=== PATIENT | male | born 1980 | race Caucasian/White ===

== ENCOUNTER 2020-09-22 09:22 | Emergency (ER) | payer BC, OTHER, SELFPAY ==
[2020-09-22 09:35] VITALS: BP 127/87; PULSE 80; RESP 14; TEMP 36; O2SAT 98; BMI 25.7
--- NOTE | 2020-09-22 09:41 | XR_ITS ---
PROCEDURE: XR CHEST 2V CLINICAL HISTORY: pneumonia COMPARISON: No exams were available for comparison FINDINGS: The cardiomediastinal silhouette and pulmonary vascularity are within normal limits. The lungs are clear without infiltrates, suspicious nodules, or pleural effusions. No acute bony abnormalities. IMPRESSION: No acute findings. Dictated by: Luke Cramer MD 09/22/2020 11:05 Luke Cramer MD in [place] 09/22/2020 11:08
--- NOTE | 2020-09-22 10:42 | HMH.EDUTC ---
[facility] [place] Disposition Clinical Impression: Pneumonia Qualifiers: Pneumonia type: due to unspecified organism Laterality: right Lung location: lower lobe of lung Qualified Code(s): J18.9 - Pneumonia, unspecified organism Disposition: Home, Self-Care Condition on Discharge: Good Instructions: Pneumonia-Adult Additional Instructions: Drink plenty of fluids. Take tylenol or ibuprofen for pain or fever. Take the medications as directed. Follow up with your regular doctor. GO TO THE ER FOR ANY WORSENING SYMPTOMS Prescriptions: Cefdinir [Omnicef 300mg Capsule] 300 mg PO BID #20 cap Transmission Status: Received by [id number] predniSONE [Prednisone 20mg Tab] 20 mg PO BID 4 Days #8 tab Transmission Status: Received by [id number] Referrals: Jason Flores [Primary Care Provider] - Medical Decision Making - Medical Records Medical records reviewed: No: I reviewed the patient's medical records. - [place] Inquiry Pt receiving controlled substance: No Vital Signs: 09/22/20 09:35 09/22/20 10:47 Temperature 96.8 F L 96.8 F L Temperature Source Temporal Artery Scan Pulse Rate 80 Pulse Rate [Right Brachial] 80 Respiratory Rate 14 14 Blood Pressure 127/87 Blood Pressure [Right Arm] 127/87 Blood Pressure Mean [Right Arm] 100 Blood Pressure Source [Right Arm] Automatic Cuff Blood Pressure Position [Right Arm] Sitting 02 Sat by Pulse Oximetry 98 Oxygen Delivery Method Room Air [facility] [place] HPI - General Stated complaint: diagnosed with pneumonia Time Seen by Provider: 09/22/20 10:42 Mode of Arrival: Ambulatory Source of Information: Patient Limitations: No Limitations Description of Symptoms (Recalled from Triage Doc. by RN): PATIENT REPORTS HE WAS DIAGNOSED WITH PNEUMONIA AT [facility] LAST WEEKEND AND WAS GIVEN A ZPACK. PATIENT WANTING TO FOLLOW-UP HEENT Symptoms (Recalled from RN notes): No Resp Symptoms (Recalled from RN notes): No Skin Symptoms (Recalled from RN notes): No MS Symptoms (Recalled from RN notes): No Functional Status (Recalled from RN notes): WNL - History of Present Illness Provider Complaint: He was diagnosed with pneumonia last week. He denies that he had covid-19. He was prescribed a z-pack. He has finished the z-pack. He states that he is still not feeling better. He denies any shortness of breath at this time, but he has had some periods of sob over the past week. - Related Data Home Medications Medication Instructions Recorded Confirmed Esomeprazole Magnesium [Nexium 20 mg PO HS 09/22/20 09/22/20 24Hr] Ustekinumab [Stelara] 40 mg SQ MONTHLY 09/22/20 09/22/20 Previous Rx's Medication Instructions Recorded Cefdinir [Omnicef 300mg Capsule] 300 mg PO BID #20 cap 09/22/20 predniSONE [Prednisone 20mg 20 mg PO BID 4 Days #8 tab 09/22/20 Tab] Allergies Allergy/AdvReac Type Severity Reaction Status Date / Time amoxicillin Allergy Verified 09/22/20 09:54 Penicillins Allergy Verified 09/22/20 09:54 tetracycline Allergy Verified 09/22/20 09:54 - Worker's Comp Is this a Worker's Comp case?: No [facility] History - Hepatitis A Screen Drug use history?: No High risk sexual behaviors?: No History of sexually transmitted infection?: No Currently employed?: No Childcare worker?: No Do you have indoor plumbing?: Yes Do you have electricity?: Yes Attestation statement:: This patient has been screened for Hepatitis A risk factors. I have reviewed the patient's past medical history: Yes - Social History Alcohol Intake: never Occupational Status: other ROS Obtained: Yes All systems reviewed & no additional complaints - Constitutional Constitutional: Denies chills, Denies fever(s) - Eyes Eyes: Reports system reviewed and no additional complaints, except as docu - ENT Ears, Nose, Mouth, and Throat: Denies dizziness, Denies otalgia, Reports sore throat - Cardiovascular Cardiovascular: Denies chest pa
[2020-09-22 10:47] VITALS: BP 127/87; PULSE 80; RESP 14; TEMP 36; O2SAT 98
== END 2020-09-22 10:49 | disposition home or self-care (01) ==
PROVIDERS: Emergency Provider Nurse Practitioner Family; PCP Internal Medicine
DX: J18.9 Pneumonia, unspecified organism (principal); Z88.0 Allergy status to penicillin
CPT/HCPCS: 71046; 99202; G0463

== ENCOUNTER 2022-07-19 08:00 | Emergency (ER) | payer BC, SELFPAY ==
[2022-07-19 08:15] VITALS: BP 142/98; PULSE 92; RESP 20; TEMP 36.8; O2SAT 98; BMI 27.1
[2022-07-19 08:36] LABS: UTC Influenza A Antigen Negative (Negative)
[2022-07-19 08:37] LABS: UTC Influenza B Antigen Negative (Negative)
--- NOTE | 2022-07-19 08:38 | EXP.UTC ---
Discharge Plan Disposition Patient Disposition: Home, Self-Care Condition: Good Prescriptions Prescriptions: New methylprednisolone [Medrol (Mitchel)] 4 mg tablets,dose pack See Rx Instructions .Route .COMPLEX 6 Days Qty: 21 0RF Rx Instructions: taper pack; cefdinir 300 mg capsule 300 mg PO BID Qty: 20 0RF No Action ustekinumab 45 MG/0.5 ML syringe 40 mg SQ MONTHLY esomeprazole magnesium 20 MG tablet,delayed release (DR/EC) 20 mg PO HS Referrals Follow up/Referrals: Jason Flores [Primary Care Provider] - See instructions Activity Restrictions/Add. Instructions Additional Instructions/Restrictions: Take medication as prescribed Follow up with your Family Doctor if no improvement or any worsening of symptoms Return if needed Straight to ER if any life threatening symptoms Clinical Impressions Clinical Impression: Otitis media Qualifiers: Otitis media type: unspecified Laterality: right Qualified Code(s): H66.91 - Otitis media, unspecified, right ear Stand Alone Forms Stand Alone Forms: Work/School Release Instructions Patient Instructions: Middle Ear Infection Discharge ED Provider: Clare Villatoro [facility] [place] General Stated complaint: Headache, RT ear pain Mode of Arrival: Ambulatory Source of Information: Patient Limitations: No Limitations Time Seen by Provider: 07/19/22 08:38 Description of Symptoms (Recalled from Triage Doc. by RN): PATIENT C/O HEADACHE, RIGHT EAR ACHE AND NAUSEA SINCE TUESDAY. RECENTLY EXPOSED TO FLU HEENT Symptoms (Recalled from RN notes): Yes Resp Symptoms (Recalled from RN notes): No Skin Symptoms (Recalled from RN notes): No MS Symptoms (Recalled from RN notes): No Functional Status (Recalled from RN notes): WNL History of Present Illness Provider Complaint: Patient states that he started having pain in his right ear, headache, nausea and feeling a little dizzy on and off States that several people at his work has had flu and he took several home COVID test and they was negative so he came in Related Data Home Medications Medication Instructions Recorded Confirmed esomeprazole magnesium 20 mg 20 mg PO HS GERD 09/22/20 07/19/22 tablet,delayed release ustekinumab 45 mg/0.5 mL 40 mg SQ MONTHLY Arthritis 09/22/20 07/19/22 subcutaneous syringe Previous Rx's Medication Instructions Recorded cefdinir 300 mg capsule 300 mg PO BID #20 caps 07/19/22 methylprednisolone 4 mg tablets in See Rx Instructions .Route 07/19/22 a dose pack (Medrol (Mitchel)) .COMPLEX 6 days #21 tabs Allergies Allergy/AdvReac Type Severity Reaction Status Date / Time amoxicillin Allergy Verified 09/22/20 09:54 Penicillins Allergy Verified 09/22/20 09:54 tetracycline Allergy Verified 09/22/20 09:54 Worker's Comp Is this a Worker's Comp case?: No [facility] Disclaimer: The information contained in this section may have been updated after the patient was seen, as this information can be updated by other users. Medical History (Updated 07/19/22 @ 08:49 by Clare Villatoro APRN) History of gastroesophageal reflux (GERD) Social History (Updated 07/19/22 @ 08:33 by Brit Traore RN) Smoking Status: Unknown if ever smoked alcohol intake: never current occupational status: employed Travel in the last 8 weeks: None ROS Obtained: Yes All systems reviewed & no additional complaints except as documented and Yes Systems reviewed as appropriate & no additional complaints except as documented Constitutional Constitutional: Reports system reviewed and no additional complaints, except as documented, Reports as per HPI and Reports headache(s) ENT Ears, Nose, Mouth, and Throat: Reports system reviewed and no additional complaints, except as documented, Reports as per HPI, Reports otalgia, Reports headache(s) and Reports nasal congestion Cardiovascular Cardiovascular: Reports system reviewed and no additional complaints, except as documented and
[2022-07-19 08:52] VITALS: BP 142/98; PULSE 92; RESP 20; TEMP 36.8; O2SAT 98
== END 2022-07-19 08:53 | disposition home or self-care (01) ==
PROVIDERS: Emergency Provider Nurse Practitioner; PCP Internal Medicine
DX: H66.91 Otitis media, unspecified, right ear (principal)
CPT/HCPCS: 87804; 99212; G0463

== ENCOUNTER → 2022-08-24 17:22 | Outpatient (CLI) | payer BC, SELFPAY ==
--- NOTE | 2022-08-24 17:33 | XR_ITS ---
PROCEDURE INFORMATION: Exam: XR Abdomen Exam date and time: 08/24/2022 5:34 PM Age: 41 years old Clinical indication: Constipation; Additional info: Evaluate stool pattern TECHNIQUE: Imaging protocol: Radiologic exam of the abdomen. Views: Frontal supine view of the abdomen. 1 View. COMPARISON: CR XR CHEST 2V 09/22/2020 9:57 AM FINDINGS: Gastrointestinal tract: Moderate stool throughout the colon suggests constipation. No bowel obstruction. Bones/joints: Unremarkable. IMPRESSION: Moderate stool throughout the colon suggests constipation. No bowel obstruction.
[2022-08-24 17:59] LABS: Basophils % 0.6 % (0.1-2.0); Eosinophils # 0.1 K/mm3 (0.0-0.4); Eosinophils % 1.9 % (0.1-12.0); Hematocrit 46.1 % (42.0-52.0); Hemoglobin 15.9 g/dL (14.1-18.0); Lymphocytes # 1.6 K/mm3 (0.7-4.5); Lymphocytes % 26.8 % (10-50); Mean Corpuscular HGB Conc 34.6 g/dL (31.8-35.4); Mean Corpuscular Volume 86.8 fl (80-94); Mean Platelet Volume 7.4 fl (7.4-10.4); Monocytes # 0.5 K/mm3 (0.1-1.0); Monocytes % 8.1 % (1.7-9.3); Neutrophils # 3.8 K/mm3 (1.8-7.8); Neutrophils % 62.6 % (37.0-80.0); Platelet Count 299 K/mm3 (142-424); Red Blood Count 5.31 M/mm3 (4.60-6.20); Red Cell Distribution Width 13.1 % (11.5-17.5); White Blood Count 6.1 K/mm3 (4.8-10.8)
[2022-08-24 18:10] LABS: Chloride 105 mmol/L (98-107); Sodium 144 mmol/L (136-145)
[2022-08-24 18:12] LABS: Blood Urea Nitrogen 19 mg/dl (9-20); Estimated Glomerular Filt Rate 93 ml/min (>60); GFR (African American) 113 ML/MIN (>60)
[2022-08-24 18:13] LABS: Alanine Aminotransferase 60 U/L (12-78); Albumin Level 4.7 g/dl (3.5-5.0); Albumin/Globulin Ratio 1.6 (1.1-1.8); Alkaline Phosphatase 76 U/L (38-126); Aspartate Amino Transferase 42 U/L (17-59); Bilirubin,Total 0.7 mg/dl (0.2-1.3); Calcium 8.8 mg/dl (8.4-10.2); Carbon Dioxide 31 mmol/L (22.0-30.0); Globulin 2.9 g/dL (1.3-3.2); Glucose 98 mg/dl (74-100); Total Protein,Serum 7.6 g/dl (6.3-8.2)
[2022-08-24 18:16] LABS: Hemoglobin A1C 5.3 % (4.0-6.0)
[2022-08-24 19:27] LABS: Prostate Specific Ag Screen 1.1 ng/ml (0.0-4.0)
[2022-08-24 19:46] LABS: Vitamin B12 431 pg/mL (239-931)
== END ==
PROVIDERS: PCP Nurse Practitioner Family; Visit Provider Nurse Practitioner Family
DX: R10.30 Lower abdominal pain, unspecified (principal); R35.1 Nocturia; R53.81 Other malaise
CPT/HCPCS: 36415; 74018; 80053; 82607; 83036; 84443; 85025; G0103